=== PATIENT | female | born 1995 | race Caucasian/White ===

== ENCOUNTER 2021-04-01 11:00 | Outpatient (RCR) | payer OTHER, SELFPAY | END 2021-04-01 23:59 | disposition home or self-care (01) | LOC: ANHAUDIO 11:00 | PROVIDERS: PCP Emergency Medicine; Visit Provider Emergency Medicine | DX: Z46.1 Encounter for fitting and adjustment of hearing aid (principal) | CPT/HCPCS: 99199; V5261 ==

== ENCOUNTER 2021-09-03 14:25 | Outpatient (RCR) | payer OTHER, SELFPAY | END 2021-09-03 23:59 | disposition home or self-care (01) | LOC: ANHAUDIO 14:25 | PROVIDERS: PCP Emergency Medicine | DX: Z46.1 Encounter for fitting and adjustment of hearing aid (principal) | CPT/HCPCS: 99199 ==

== ENCOUNTER 2023-12-25 13:02 | Outpatient (CLI) | payer OTHER, SELFPAY | END 2023-12-25 13:03 | disposition home or self-care (01) | LOC: ANHAUDIO 13:03 | PROVIDERS: PCP Internal Medicine; Visit Provider Internal Medicine | DX: H90.42 Sensorineural hearing loss, unilateral, left ear, with unrestricted hearing on the contralateral side (principal) | CPT/HCPCS: 92557; 92567 ==

== ENCOUNTER 2024-03-21 09:30 | Outpatient (RCR) | payer OTHER, SELFPAY | END 2024-03-21 23:59 | disposition home or self-care (01) | LOC: ANHAUDIO 09:30 | PROVIDERS: PCP Internal Medicine; Visit Provider Internal Medicine | DX: Z46.1 Encounter for fitting and adjustment of hearing aid (principal) | CPT/HCPCS: 99199; V5261 ==

== ENCOUNTER 2024-07-09 16:58 | Emergency (ER) | payer OTHER, SELFPAY ==
--- NOTE | 2024-07-09 17:02 | ED.GENADULT ---
HPI - General Adult General Chief complaint: Upper Respiratory Infection Stated complaint: ear ache and bleeding, sinus infection Time Seen by Provider: 07/09/24 17:02 Source: patient Mode of arrival: ambulatory Limitations: no limitations History of Present Illness HPI narrative: 28-year-old female patient presents to the [facility] with complaints of bilateral ear pain, congestion, runny nose. Patient states she tested positive for COVID about 2 weeks ago and most of her symptoms have resolved but still feeling like she has a lot of congestion, drainage and does have some bilateral ear pain at times. Related Data Home Medications Medication Instructions Recorded Confirmed atorvastatin 20 mg tablet 20 mg PO HS 07/09/24 07/09/24 celecoxib 200 mg capsule 200 mg PO DAILY 07/09/24 07/09/24 citalopram 40 mg tablet 40 mg PO DAILY 07/09/24 07/09/24 esomeprazole magnesium 40 mg 40 mg PO DAILY 07/09/24 07/09/24 capsule,delayed release folic acid 1 mg tablet 1 mg PO DAILY 07/09/24 07/09/24 gabapentin 100 mg capsule 100 mg PO TID 07/09/24 07/09/24 lamotrigine 200 mg tablet 200 mg PO BID 07/09/24 07/09/24 linaclotide 290 mcg capsule 290 mcg PO DAILY 07/09/24 07/09/24 (Linzess) oxybutynin chloride 15 mg 15 mg PO DAILY 07/09/24 07/09/24 tablet,extended release 24 hr trazodone 50 mg tablet 50 mg PO PRN PRN insomnia 07/09/24 07/09/24 Allergies Allergy/AdvReac Type Severity Reaction Status Date / Time lacosamide [From Vimpat] AdvReac Severe Hallucinati Verified 07/09/24 17:20 ng hydromorphone [From Dilaudid] AdvReac Mild Itching Verified 07/09/24 17:21 Review of Systems Review of Systems: CONSTITUTIONAL: Denies fever, chills, or sweats. EYES: Denies visual changes, redness, or discharge. ENT: Positive rhinorrhea, congestion, denies sore throat, positive bilateral otalgia. CARDIOVASCULAR: Denies chest pain, palpitations, or edema. RESPIRATORY: positive cough denies dyspnea. GASTROINTESTINAL: Denies abdominal pain, nausea, vomiting, or diarrhea. GENITOURINARY: Denies dysuria or hematuria. SKIN: Denies rash or itching. MUSCULOSKELETAL: Denies back pain, joint pain, or myalgia. NEUROLOGIC: Denies headache, numbness, or weakness. PSYCHIATRIC: Denies anxiety or depression. PMFSH Comments At the time of my signature I agree with nursing past medical history, surgical, social, and family history. There is no relevant family history pertinent to the presenting complaint. Exam Narrative: GENERAL: Well-appearing, well-nourished, and in no acute distress. HEAD: Normocephalic, atraumatic. EYES: PERRLA and EOMI. ENT: Nares with erythema edema noted bilateral, no rhinorrhea or epistaxis. Mucous membranes moist. posterior pharynx with no erythema, tonsillar enlargement, exudates or lesions present. Bilateral TMs appear to have some fluid behind there but no erythema no bulging no abnormalities noted to the canal except for some wax noted to the left ear canal. NECK: Supple. No lymphadenopathy CHEST: Clear to auscultation. No respiratory distress. HEART: Regular rate and rhythm. No murmur heard. Normal peripheral pulses. ABDOMEN: Soft, nontender, nondistended, normal active bowel sounds. EXTREMITIES: Normal range of motion. No edema. SKIN: Warm, dry, no rash. NEURO: No focal deficits. Alert and oriented x3. Course Course Level of Care: Express Care Visit Vital Signs Vital signs: Vital Signs Temperature 36.7 C 07/09/24 17:06 Pulse Rate 76 07/09/24 17:06 Respiratory Rate 18 07/09/24 17:06 Blood Pressure 99/57 L 07/09/24 17:06 Pulse Oximetry 96 07/09/24 17:06 Oxygen Delivery Room Air 07/09/24 17:06 Temperature 36.7 C 07/09/24 17:06 Pulse Rate 76 07/09/24 17:06 Respiratory Rate 18 07/09/24 17:06 Blood Pressure 99/57 L 07/09/24 17:06 Pulse Oximetry 96 07/09/24 17:06 Oxygen Delivery Room Air 07/09/24 17:06 Vital signs reviewed. Medical Decision Making TATI [place]
[2024-07-09 17:06] VITALS: BP 99/57; PULSE 76; RESP 18; TEMP 36.7; O2SAT 96
== END 2024-07-09 17:38 | disposition home or self-care (01) ==
PROVIDERS: Emergency Provider Nurse Practitioner Family; PCP Internal Medicine
DX: J32.9 Chronic sinusitis, unspecified (principal); J06.9 Acute upper respiratory infection, unspecified; K21.9 Gastro-esophageal reflux disease without esophagitis; F41.9 Anxiety disorder, unspecified; F32.A Depression, unspecified; Z86.16 Personal history of COVID-19
CPT/HCPCS: 99213; G0463